=== PATIENT | female | born 1970 | race African-American/Black ===

== ENCOUNTER 2018-02-08 06:33 | Inpatient (IN) ==
[~2018-02-08 06:33] MED LIST: D5 1/2 NS 1000 ML 1,000 ML IV ONE
[2018-02-08 07:04] VITALS: BMI 40.7
[2018-02-08] MEDS ORDERED: D5 1/2 NS 1000 ML 1,000 ML IV SCH (07:14)
[2018-02-08] MEDS ORDERED: ANCEF VIAL 1 GRAM IVP ONE (07:14)
[2018-02-08] MEDS ORDERED: FENTANYL INJ 250 mcg ONE (07:20)
[2018-02-08] MEDS ORDERED: DILAUDID INJ ONE (08:01)
[2018-02-08] MEDS ORDERED: METHYLENE BLUE 1% INJ ONE (08:43)
[2018-02-08] MEDS ORDERED: D5 1/2 NS 1000 ML 1,000 ML IV ONE (09:13)
[2018-02-08] MEDS ORDERED: REGLAN INJ 10 MG VIAL IVP PRN (09:57)
[2018-02-08] MEDS ORDERED: DILAUDID INJ IVP PRN (09:57)
[2018-02-08] MEDS ORDERED: ZOFRAN INJ 4 MG VIAL IVP PRN ×2 (09:57→10:47)
[2018-02-08] MEDS ORDERED: PHENERGAN INJ 25 MG IVP PRN (09:57)
[2018-02-08] MEDS ORDERED: BENADRYL INJ 50 MG VIAL IVP PRN ×2 (09:57→10:47)
[2018-02-08] MEDS ORDERED: MORPHINE SULFATE PCA 30 MG ONE (10:45)
[2018-02-08] MEDS ORDERED: MORPHINE SULFATE PCA 30 MG IVP PRN (10:47)
[2018-02-08] MEDS: TORADOL 30 MG VIAL IVP PRN ×3 (13:05→20:44)
[2018-02-08] MEDS ORDERED: NORMODYNE INJ 20 MG VIAL ONE (13:08)
[2018-02-08] MEDS ORDERED: NS IRRIGATION 1000 ML ONE (14:57)
[2018-02-08] MEDS: D5 1/2 NS 1000 ML 1,000 ML IV SCH ×3 (14:57→20:48)
[2018-02-08] MEDS ORDERED: NEOSTIGMINE INJ ONE (16:00)
[2018-02-08] MEDS ORDERED: TORADOL 30 MG VIAL ONE (16:00)
[2018-02-08] MEDS ORDERED: XYLOCAINE 1 % (PLAIN) ONE (16:00)
[2018-02-08] MEDS ORDERED: VERSED ONE (16:00)
[2018-02-08] MEDS ORDERED: ROBINUL ONE (16:00)
[2018-02-08] MEDS ORDERED: DIPRIVAN VIAL ONE (16:00)
[2018-02-08] MEDS ORDERED: NORCURON INJ 10 MG VIAL ONE (16:00)
[2018-02-08] MEDS ORDERED: ZOFRAN INJ 4 MG VIAL ONE (16:00)
[2018-02-08] MEDS ORDERED: QUELICIN (OR ANECTINE) ONE (16:00)
[2018-02-08] MEDS ORDERED: SUPRANE IN ONE (16:00)
[2018-02-09] MEDS: TORADOL 30 MG VIAL IVP PRN ×3 (01:05→06:11)
[2018-02-09 05:14] LABS: BASOPHILS % (AUTO) 0.2 % (0.2-1.0); EOSINOPHILS # (AUTO) 0.1 x10^3/uL (0.0-0.2); EOSINOPHILS % (AUTO) 2.3 % (0.9-2.9); HEMATOCRIT 27.9 % (36.0-47.0); HEMOGLOBIN 9.5 g/dL (12.0-16.0); LYMPHOCYTES # (AUTO) 1.5 X10^3/uL (1.3-2.9); LYMPHOCYTES % (AUTO) 28.2 % (21.0-51.0); MEAN CORPUSCULAR HEMOGLOBIN 28.1 pg (27.0-34.0); MEAN CORPUSCULAR HGB CONC 33.9 g/dL (33.0-35.0); MEAN CORPUSCULAR VOLUME 82.9 fL (80.0-100.0); MEAN PLATELET VOLUME 7.7 fL (7.4-11.0); MONOCYTES # (AUTO) 0.4 x10^3/uL (0.3-0.8); MONOCYTES % (AUTO) 7.7 % (0.0-13.0); NEUTROPHILS # (AUTO) 3.3 x10^3/uL (2.2-4.8); NEUTROPHILS % (AUTO) 61.6 % (42.0-75.0); PLATELET COUNT 251 X10^3/uL (150.0-450.0); RED BLOOD COUNT 3.37 X10^6/uL (3.5-5.4); RED CELL DISTRIBUTION WIDTH 13.9 % (11.6-16.5); WHITE BLOOD COUNT 5.4 X10^3/uL (3.6-10.0)
[2018-02-09 05:30] LABS: BLOOD UREA NITROGEN 5 mg/dL (7-18); CALCIUM 8.1 mg/dL (8.5-10.1); CARBON DIOXIDE 26.8 mmol/L (21-32); CHLORIDE 105 mmol/L (98-107); COR NA(FOR HYPERGLY) 140 mmol/L (136-145); CREATININE 0.92 mg/dL (0.55-1.02); SODIUM 139 mmol/L (136-145); eGFR NON BLACK RACES > 60 (>60)
[2018-02-09] MEDS ORDERED: POTASSIUM CHL 40 MEQ/NS 0.45% 500 ML IV PRN (05:51)
[2018-02-09] MEDS ORDERED: MICRO K EXTEN CAP 10 MEQ PO PRN (05:51)
[2018-02-09] MEDS ORDERED: POTASSIUM CHL 60 MEQ/NS 0.45% 500 ML IV PRN (05:51)
[2018-02-09] MEDS ORDERED: K-DUR TAB 20 MEQ PO PRN (05:51)
[2018-02-09] MEDS ORDERED: KLOR-CON PO PRN (05:51)
[2018-02-09] MEDS ORDERED: K-RIDER 10 MEQ/NS 100 ML 10 MEQ/100 ML BAG IV PRN (05:51)
[2018-02-09] MEDS ORDERED: POTASSIUM CHLORIDE LIQ 20 MEQ UDC PO PRN (05:51)
[2018-02-09] MEDS: D5 1/2 NS 1000 ML 1,000 ML IV SCH ×2 (06:12)
[2018-02-09] MEDS ORDERED: XANAX PO PRN (07:34)
[2018-02-09] MEDS: PERCOCET TAB 5/325 MG PO PRN ×3 (08:35→20:00)
[2018-02-09] MEDS: COLACE CAP 100 MG PO SCH ×2 (08:37→20:00)
[2018-02-09] MEDS ORDERED: ESTRACE PO SCH (09:00)
[2018-02-09] MEDS ORDERED: ZYLOPRIM PO SCH (09:00)
[2018-02-09] MEDS: BACTROBAN CREAM TOP SCH ×3 (12:58→21:40)
[2018-02-09] MEDS: MOTRIN TAB 800 MG PO PRN (15:53)
[2018-02-09] MEDS: MYLICON TAB 80 MG CHEW PO PRN (20:02)
[2018-02-10] MEDS: PERCOCET TAB 5/325 MG PO PRN ×2 (01:30→05:30)
[2018-02-10] MEDS: MYLICON TAB 80 MG CHEW PO PRN (04:38)
[2018-02-10] MEDS: MOTRIN TAB 800 MG PO PRN (04:38)
[2018-02-10 04:45] VITALS: BP 117/63
[2018-02-10] MEDS: BACTROBAN CREAM TOP SCH (05:30)
== END 2018-02-10 08:20 | disposition home or self-care (01) | DRG 743 ==
LOC: MED/SURG 06:33
PROVIDERS: ADMIT Specialist; ATTEND Specialist
DX: R10.2 Pelvic and perineal pain; D25.2 Subserosal leiomyoma of uterus; N92.5 Other specified irregular menstruation; N94.4 Primary dysmenorrhea
CPT/HCPCS: 36415; 80048; 83735; 85025; 94760; A4216; A4222; J0330; J0690; J1170; J1885; J2250; J2271; J2405; J2704; J2710; J3010; J3490; Q9968; S5010

== ENCOUNTER 2024-05-09 12:02 | Observation (INO) ==
[2024-05-09] MEDS: DILAUDID INJ IVP ONE (13:03)
[2024-05-09] MEDS: VERSED IVP ONE (13:04)
[2024-05-09] MEDS: ZOFRAN INJ 4 MG VIAL IVP ONE (13:06)
--- NOTE | 2024-05-09 13:38 | DR.SOBA ---
HPI Time Seen Time Seen by Provider: 05/09/24 13:38 Primary Care Physician Primary Care Physician: Cheyanne Complaints Chief Complaint:: Pt. c/o SOB x 2 weeks. 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 Surgery Family History History of Family Medical Conditions: Yes Family Medical History: Diabetes Mellitus, Cancer, Coronary Artery Disease and Hypertension Social History Does patient currently use any type of tobacco product: No Have you used tobacco products in the last 12 months: No Type of Tobacco Use: None Does any household member use tobacco: No Alcohol Use: Rarely Do you use any recreational Drugs:: No Lives With: Family Lives Where: Home Travel Risk Coronavirus risk:travel/contact w/high risk person: No Has patient experienced Coronavirus symptoms: No Infectious screening In the last 2 months have you had wt loss of >10#?: NO Have you had fever, night sweats or hemotysis?: No Have you traveled outside the country in the last 6 months?: No Isolation: Standard PE Vital Signs Vitals: Vital Signs Temperature 97.5 F Pulse Rate 75 Pulse Rate 98 Respiratory Rate 20 Respiratory Rate 22 Blood Pressure 109/68 Blood Pressure 161/92 O2 Sat by Pulse Oximetry 100 O2 Sat by Pulse Oximetry 99 ROR Labs Reviewed 05/09/24 13:48 05/09/24 13:48 Laboratory: WBC 3.7 X10^3/uL (3.6-10.0) 05/09/24 13:48 RBC 3.86 X10^6/uL (3.5-5.4) 05/09/24 13:48 Hgb 10.8 g/dL (12.0-16.0) L 05/09/24 13:48 Hct 32.2 % (36.0-47.0) L 05/09/24 13:48 MCV 83.3 fL (80.0-100.0) 05/09/24 13:48 MCH 27.9 pg (27.0-34.0) 05/09/24 13:48 MCHC 33.5 g/dL (33.0-35.0) 05/09/24 13:48 RDW 16.3 % (11.6-16.5) 05/09/24 13:48 Plt Count 302 X10^3/uL (150.0-450.0) 05/09/24 13:48 MPV 7.0 fL (7.4-11.0) L 05/09/24 13:48 Neut % (Auto) 51.6 % (42.0-75.0) 05/09/24 13:48 Lymph % (Auto) 37.6 % (21.0-51.0) 05/09/24 13:48 [place] % (Auto) 8.1 % (0.0-13.0) 05/09/24 13:48 Eos % (Auto) 1.7 % (0.9-2.9) 05/09/24 13:48 Baso % (Auto) 1.0 % (0.2-1.0) 05/09/24 13:48 Neut # (Auto) 1.9 x10^3/uL (2.2-4.8) L 05/09/24 13:48 Lymph # (Auto) 1.4 X10^3/uL (1.3-2.9) 05/09/24 13:48 [place] # (Auto) 0.3 x10^3/uL (0.3-0.8) 05/09/24 13:48 Eos # (Auto) 0.1 x10^3/uL (0.0-0.2) 05/09/24 13:48 Baso # (Auto) 0.0 X10^3/uL (0.0-0.1) 05/09/24 13:48 Absolute Nucleated RBC 0.2 /100WBC 05/09/24 13:48 Sodium 141 mmol/L (136-145) 05/09/24 13:48 Corrected Sodium 141 mmol/L (136-145) 05/09/24 13:48 Potassium 4.2 mmol/L (3.5-5.1) 05/09/24 13:48 Chloride 107 mmol/L (98-107) 05/09/24 13:48 Carbon Dioxide 27.1 mmol/L (21-32) 05/09/24 13:48 BUN 14 mg/dL (7-18) 05/09/24 13:48 Creatinine 1.57 mg/dL (0.55-1.02) H 05/09/24 13:48 Est GFR (MDRD) Af Amer 44 (>60) L 05/09/24 13:48 Est GFR (MDRD) Non-Af 37 (>60) L 05/09/24 13:48 Glucose 118 mg/dL (65-99) H 05/09/24 13:48 Calcium 9.0 mg/dL (8.5-10.1) 05/09/24 13:48 Corrected Calcium 9.6 mg/dL (8.5-10.1) 05/09/24 13:48 Total Bilirubin 0.30 mg/dL (0.2-1.0) 05/09/24 13:48 AST 21 Units/L (15-37) 05/09/24 13:48 ALT 24 Units/L (12-78) 05/09/24 13:48 Alkaline Phosphatase 72 Units/L (46-116) 05/09/24 13:48 Lactate Dehydrogenase Cancelled 05/09/24 13:48 Total Protein 7.4 g/dL (6.4-8.2) 05/09/24 13:48 Albumin 3.2 g/dL (3.4-5.0) L 05/09/24 13:48 Globulin 4.2 g/dL (2.5-4.5) 05/09/24 13:48 Albumin/Globulin Ratio 0.8 Ratio (1.1-2.1) L 05/09/24 13:48 Fluid pH 8.0 05/09/24 13:10 Fluid Total Protein 4.8 05/09/24 13:10 Opioid Opioid Risk Tool Age (Casey box if 16-45): No History of Preadolescent Sexual Abuse: No Total: 0 Total Score Risk Category: Low Risk Copyright: Vini LY predicting aberrant behaviors Discharge Plan Discharge Plan Patient Disposition: HOME, SELF-CARE Condition: Stable Prescriptions: No Action carvedilol 12.5 mg tablet 12.5 mg PO Q12H Qty: 180 0RF folic acid 800 mcg tablet 0.8 mg PO QDAY Qty: 90 3RF cyclobenzaprine 10 mg tablet 10 mg PO TID PRN (Reason: muscle spasm) 10 Days Qty: 30 0RF Linzess 72 mcg capsule 72 mcg PO QAM 90 Days Qty: 90 1RF alprazolam [Xanax] 0.5 mg tablet 0.5 mg PO BID MDD 2 PRN (Reason: anxiety secondary to breast cancer) 30 Days Qty: 60 2RF dextroamphetamine-amphetamine [Adderall] 30 mg tablet 30 mg PO BID MDD 2 tablets per 24 hours 30 Days Qty: 60 0RF Rx Instructions: administer doses at least 4-6 hours apart hydrocodone-acetaminophen 10-325 mg tablet 1 tab PO Q6H MDD 4 tablets per 24 hours PRN (Reason: Pain) 30 Days Qty: 120 0RF Rx Instructions: patient only takes when needed amitriptyline 25 mg tablet 25 mg PO QHS Qty: 90 3RF metformin 500 mg tablet extended release 24 hr 500 mg PO QDAY Qty: 90 3RF tramadol 50 mg tablet 50 mg PO BID PRN (Reason: pain) cholecalciferol (vitamin D3) 125 mcg (5,000 unit) tablet 125 mcg PO DAILY ondansetron 8 mg tablet,disintegrating 8 mg PO TID PRN (Reason: nausea) letrozole 2.5 mg tablet 2.5 mg PO QDAY Verzenio 50 mg tablet 50 mg PO DAILY Health Concerns: Post Hospitalization: new medications and changes needed to prevent readmission or further decline. Pt educated and given instructions on all concerns. Plan of Treatment: Continue with present treatment and follow up plan. Pt is to keep follow up appointment as instructed and take medications as ordered. Orders to Discharge Patient Discharge Orders: Transfer (Routine); Ordered 05/09/24 Ordered By: JOHN LEWIS Follow ups/Referrals Follow ups/Referrals: Marvin Edward MD [Primary Care Provider] - 3 days Instructions Stand Alone Forms: Find Help Web Site, Post Hospital Follow Up Care
[2024-05-09 13:59] LABS: EOSINOPHILS # (AUTO) 0.1 x10^3/uL (0.0-0.2); EOSINOPHILS % (AUTO) 1.7 % (0.9-2.9); HEMATOCRIT 32.2 % (36.0-47.0); HEMOGLOBIN 10.8 g/dL (12.0-16.0); LYMPHOCYTES # (AUTO) 1.4 X10^3/uL (1.3-2.9); LYMPHOCYTES % (AUTO) 37.6 % (21.0-51.0); MEAN CORPUSCULAR HEMOGLOBIN 27.9 pg (27.0-34.0); MEAN CORPUSCULAR HGB CONC 33.5 g/dL (33.0-35.0); MEAN CORPUSCULAR VOLUME 83.3 fL (80.0-100.0); MONOCYTES # (AUTO) 0.3 x10^3/uL (0.3-0.8); MONOCYTES % (AUTO) 8.1 % (0.0-13.0); NEUTROPHILS # (AUTO) 1.9 x10^3/uL (2.2-4.8); NEUTROPHILS % (AUTO) 51.6 % (42.0-75.0); PLATELET COUNT 302 X10^3/uL (150.0-450.0); RED BLOOD COUNT 3.86 X10^6/uL (3.5-5.4); RED CELL DISTRIBUTION WIDTH 16.3 % (11.6-16.5); WHITE BLOOD COUNT 3.7 X10^3/uL (3.6-10.0)
[2024-05-09 14:11] LABS: ALBUMIN 3.2 g/dL (3.4-5.0); CARBON DIOXIDE 27.1 mmol/L (21-32); COR CA(FOR HYPOALB) 9.6 mg/dL (8.5-10.1); CREATININE 1.57 mg/dL (0.55-1.02); POTASSIUM 4.2 mmol/L (3.5-5.1); TOTAL PROTEIN 7.4 g/dL (6.4-8.2)
[2024-05-09] MEDS ORDERED: ZOFRAN INJ 4 MG VIAL IVP PRN (16:00)
--- NOTE | 2024-05-09 16:10 | RAD ---
EXAM: CHEST, 1 VIEW HISTORY: SOB; COMPARISON: CTA chest May 06, 2024 TECHNIQUE: Portable chest radiograph FINDINGS: The heart size and mediastinal contours are normal. There is mild elevation of the right diaphragm. Recently described large right-sided pleural effusion is much improved. There is marginal residual blunting of the right costophrenic sulcus indicating a small residual effusion with subjacent atelect asis. No consolidating infiltrates are identified. There is no radiographic evidence of pneumothora x or free air below the diaphragm. Multilevel bridging osteophytes of the spine are typical of diffuse idiopathic skeletal hyperostosis . IMPRESSION: Recently described large right-sided pleural effusion is much improved. Marginal blunting of the right costophrenic sulcus may indicate a small residual pleural effusion wit h subjacent atelectasis. Mild elevation of the right diaphragm. THIS IS AN ELECTRONICALLY VERIFIED FINAL REPORT 05/09/2024 4:07 PM - Electronically signed by Tony Harris MD
[2024-05-09 18:04] VITALS: BMI 42.7
[2024-05-09] MEDS: PEPCID TAB 40 MG PO SCH (21:51)
[2024-05-09] MEDS: NORCO 5/325 MG TAB PO PRN (21:52)
[2024-05-10 04:56] LABS: BASOPHILS % (AUTO) 0.9 % (0.2-1.0); EOSINOPHILS # (AUTO) 0.1 x10^3/uL (0.0-0.2); HEMATOCRIT 28.6 % (36.0-47.0); HEMOGLOBIN 9.6 g/dL (12.0-16.0); LYMPHOCYTES # (AUTO) 1.7 X10^3/uL (1.3-2.9); LYMPHOCYTES % (AUTO) 40.4 % (21.0-51.0); MEAN CORPUSCULAR HEMOGLOBIN 28.1 pg (27.0-34.0); MEAN CORPUSCULAR HGB CONC 33.5 g/dL (33.0-35.0); MEAN CORPUSCULAR VOLUME 83.9 fL (80.0-100.0); MEAN PLATELET VOLUME 6.9 fL (7.4-11.0); MONOCYTES # (AUTO) 0.3 x10^3/uL (0.3-0.8); MONOCYTES % (AUTO) 7.8 % (0.0-13.0); NEUTROPHILS # (AUTO) 2.1 x10^3/uL (2.2-4.8); NEUTROPHILS % (AUTO) 48.9 % (42.0-75.0); PLATELET COUNT 268 X10^3/uL (150.0-450.0); RED BLOOD COUNT 3.41 X10^6/uL (3.5-5.4); WHITE BLOOD COUNT 4.2 X10^3/uL (3.6-10.0)
[2024-05-10 05:10] LABS: ALBUMIN 2.9 g/dL (3.4-5.0); CALCIUM 8.5 mg/dL (8.5-10.1); CARBON DIOXIDE 29.5 mmol/L (21-32); CHOL/HDL RATIO 3.6 (0.0-5.0); COR CA(FOR HYPOALB) 9.4 mg/dL (8.5-10.1); CREATININE 1.61 mg/dL (0.55-1.02); TOTAL PROTEIN 6.6 g/dL (6.4-8.2)
[2024-05-10 08:26] VITALS: O2SAT 97
--- NOTE | 2024-05-10 08:33 | RAD ---
EXAM:Portable chestHISTORY:Pleural effusionCOMPARISON:05/09/2024 chest x-ray, 05/06/2024 CTA chestFINDINGS:Heart size is normal. Saniya are normal. Lungs appear free of acute infiltrates. Haziness in the right lung base is likely due to residual right pleural effusion. There is apparent elevation of the right hemidiaphragm but with a shift of the apex of the hemidiaphragm laterally suggestive of the presence of sub pulmonic pleural fluid. Pleural effusion is likely increasing somewhat when compared with the prior examination. Right lateral decubitus chest film may be of further diagnostic value. No left pleural effusion identified. Bony thorax is unremarkable.IMPRESSION:No acute infiltratesSuspect increase in the patient's sub pulmonic right pleural effusion when compared with the prior examination. Right lateral decubitus chest film may be of further diagnostic value.THIS IS AN ELECTRONICALLY VERIFIED FINAL REPORT05/10/2024 8:30 AM - Electronically signed by Alec Lees MD
[2024-05-10] MEDS: PEPCID TAB 40 MG PO SCH (09:17)
[2024-05-10] MEDS: ZOFRAN INJ 4 MG VIAL ONE (10:46)
[2024-05-10] MEDS: GLUCOPHAGE XR 24-HR PO SCH (11:25)
[2024-05-10] MEDS: COREG TAB 12.5 MG PO SCH (11:25)
[2024-05-10] MEDS: NORCO 10/325 TAB PO PRN (11:26)
[2024-05-10] MEDS ORDERED: READI-CAT 2 ONE (13:21)
[2024-05-10] MEDS ORDERED: OMNIPAQUE 350 mg/mL 100 mL BTL 100 ML ONE (15:31)
[2024-05-10 16:19] VITALS: BP 117/57; PULSE 69; RESP 17; TEMP 98.5
--- NOTE | 2024-05-10 16:58 | CT ---
EXAM: CT ABDOMEN AND PELVIS WITH INTRAVENOUS CONTRASTHISTORY: Rule out metastatic disease to the liver.TECHNIQUE: Spiral axial CT images are obtained through the abdomen and pelvis without the administration of oral contrast and with the administration of intravenous contrast. Additional coronal and sagittal reformatted images are reconstructed.COMPARISON: None available.FINDINGS:GASTROINTESTINAL TRACT: There is no evidence for bowel herniation, bowel obstruction, colitis or diverticulitis. A normal-appearing appendix is seen.GENITOURINARY SYSTEM: There are multiple innumerable cysts scattered throughout the kidney (largest in the left upper pole kidney measuring approximately 2.6 cm) in keeping with multicystic kidney disease. There is an approximately 1 cm rounded hypodense mass (-92 HU) in the posterior medial right upper pole kidney consistent with an angiomyolipoma (axial image 34; coronal image 38). There is no ureteral calculus or stigmata of obstructive uropathy. There is circumferential thickening (up to 1.1 cm) of the urinary bladder wall; DDx includes muscle wall hypertrophy and cystitis in the appropriate clinical setting; infiltrating neoplastic disease (e.g. lymphoma), though unlikely, not excluded.CT ABDOMEN: No evidence for hepatic metastatic disease is seen at this time. The liver, spleen, pancreas, adrenal glands, gallbladder, aorta, and inferior vena cava are within normal limits for a CT scan. There is no intra-abdominal or retroperitoneal lymphadenopathy, free fluid, or free air seen. No abdominal herniation is noted.CT PELVIS: Status post hysterectomy. No pelvic sidewall or inguinal lymphadenopathy is seen. No inguinal herniation is noted. No free fluid or free air is seen.BONES AND JOINTS: The visualized bony structures are within normal limits.LUNG BASES: There is up to 1.6 cm lobular thickening of the visualized anterior pleura within the middle and inferior right hemithorax, with suggestion of associated chest wall invasion and costochondral cartilage erosion; DDx includes neoplastic disease (e.g. mesothelioma) with chest wall invasion and cartilage erosion. Axial image 1-16. There is a moderate to large dependent right pleural effusion with thickened nodular enhancing pleural rind; DDx includes empyema and malignant effusion with pleural metastasis in the appropriate clinical setting. There is an enlarged enhancing right retrocrural lymph node conglomerate (approximately 3.8 cm CC by 1.9 cm AP by 2.2 cm transverse) in keeping with malignant lymphadenopathy. Axial image 15; coronal image 43.IMPRESSION:1. Up to 1.6 cm lobular thickening of the visualized anterior pleura within the middle and inferior right hemithorax, with suggestion of associated chest wall invasion and costochondral cartilage erosion; DDx includes neoplastic disease (e.g. mesothelioma) with chest wall invasion and cartilage erosion. Axial image 1-16.2. Moderate to large dependent right pleural effusion with thickened nodular enhancing pleural rind; DDx includes empyema and malignant effusion with pleural metastasis in the appropriate clinical setting.3. Enlarged enhancing right retrocrural lymph node conglomerate (approximately 3.8 cm CC by 1.9 cm AP by 2.2 cm transverse) in keeping with malignant lymphadenopathy. Axial image 15; coronal image 43.4. No evidence for hepatic metastatic disease seen.5. No evidence for pyelonephritis, renal stone disease or obstructive uropathy.6. Multiple innumerable cysts scattered throughout the kidney (largest in the left upper pole kidney measuring approximately 2.6 cm) in keeping with multicystic kidney disease.7. Approximately 1 cm rounded hypodense mass (-92 HU) in the posterior medial right upper pole kidney consistent with an angiomyolipoma (axial image 34; coronal image 38).8. Circumferential thickening (up to 1.1 cm) of the urinary bladder wall; DDx includes muscle wall hypertrophy and cystitis in the appropriate clinical setting; infiltrating neoplastic disease (e.g. lymphoma), though unlikely, not excluded.9. No evidence for acute appendicitis, bowel herniation/obstruction, colitis or diverticulitis seen.10. No free fluid or free air seen.THIS IS AN ELECTRONICALLY VERIFIED FINAL REPORT05/10/2024 4:55 PM - Electronically signed by Esme Acevedo MD
--- NOTE | 2024-05-10 17:35 | DR.SSS ---
SHORT STAY SUMMARY Admission Date Date of Admission: 05/09/24 Discharge Date Discharge Date: 05/10/24 Admission Diagnoses Admission Diagnoses: Dyspnea Discharge Diagnoses Discharge Diagnoses: Large right pleural effusion, metastatic breast cancer, anemia of chronic disease. Chief Complaint Chief Complaint: Dyspnea History of Present Illness History of Present Illness: Patient sent to the ER by oncology after CT of the chest showed large right-sided pleural effusion. Following with them routinely due to her history of left-sided breast cancer. CT was ordered due to 3 weeks of worsening dyspnea on exertion that progressed to dyspnea at rest. ER consulted surgery and they performed a thoracentesis with good relief of symptoms. She was to be admitted overnight for repeat chest x-ray in the morning. Past Medical History Past Medical History: Dyslipidemia and Hypertension Past Surgical History Surgical History: Hysterectomy Allergies Allergies Allergy/AdvReac Type Severity Reaction Status Date / Time tizanidine [From Zanaflex] Allergy Verified 05/09/24 15:12 Medications Home Medications: tizanidine [From Zanaflex] Allergy (Verified 05/09/24 15:12) Family History Family Medical History: Diabetes Mellitus, Cancer and Coronary Artery Disease Social History Does patient currently use any type of tobacco product: No Have you used tobacco products in the last 12 months: No Type of Tobacco Use: None Does any household member use tobacco: No Alcohol Use: Rarely Drug Use: None Physical Exam Vital Signs: Last Vital Signs Temp 97.2 F L 05/10/24 08:00 Pulse 88 05/10/24 08:00 Resp 19 05/10/24 08:00 BP 132/63 05/10/24 08:00 Pulse Ox 97 05/10/24 08:00 O2 Del Method Nasal Cannula 05/10/24 08:00 O2 Flow Rate 2 05/10/24 08:00 Labs Labs: Laboratory Last Values WBC 4.2 X10^3/uL (3.6-10.0) 05/10/24 04:35 RBC 3.41 X10^6/uL (3.5-5.4) L 05/10/24 04:35 Hgb 9.6 g/dL (12.0-16.0) L 05/10/24 04:35 Hct 28.6 % (36.0-47.0) L 05/10/24 04:35 MCV 83.9 fL (80.0-100.0) 05/10/24 04:35 MCH 28.1 pg (27.0-34.0) 05/10/24 04:35 MCHC 33.5 g/dL (33.0-35.0) 05/10/24 04:35 RDW 16.0 % (11.6-16.5) 05/10/24 04:35 Plt Count 268 X10^3/uL (150.0-450.0) 05/10/24 04:35 MPV 6.9 fL (7.4-11.0) L 05/10/24 04:35 Neut % (Auto) 48.9 % (42.0-75.0) 05/10/24 04:35 Lymph % (Auto) 40.4 % (21.0-51.0) 05/10/24 04:35 [place] % (Auto) 7.8 % (0.0-13.0) 05/10/24 04:35 Eos % (Auto) 2.0 % (0.9-2.9) 05/10/24 04:35 Baso % (Auto) 0.9 % (0.2-1.0) 05/10/24 04:35 Neut # (Auto) 2.1 x10^3/uL (2.2-4.8) L 05/10/24 04:35 Lymph # (Auto) 1.7 X10^3/uL (1.3-2.9) 05/10/24 04:35 [place] # (Auto) 0.3 x10^3/uL (0.3-0.8) 05/10/24 04:35 Eos # (Auto) 0.1 x10^3/uL (0.0-0.2) 05/10/24 04:35 Baso # (Auto) 0.0 X10^3/uL (0.0-0.1) 05/10/24 04:35 Absolute Nucleated RBC 0.1 /100WBC 05/10/24 04:35 Sodium 140 mmol/L (136-145) 05/10/24 04:35 Corrected Sodium 142 mmol/L (136-145) 05/10/24 04:35 Potassium 4.0 mmol/L (3.5-5.1) 05/10/24 04:35 Chloride 105 mmol/L (98-107) 05/10/24 04:35 Carbon Dioxide 29.5 mmol/L (21-32) 05/10/24 04:35 BUN 15 mg/dL (7-18) 05/10/24 04:35 Creatinine 1.61 mg/dL (0.55-1.02) H 05/10/24 04:35 Est GFR (MDRD) Af Amer 43 (>60) L 05/10/24 04:35 Est GFR (MDRD) Non-Af 36 (>60) L 05/10/24 04:35 Glucose 176 mg/dL (65-99) H 05/10/24 04:35 Calcium 8.5 mg/dL (8.5-10.1) 05/10/24 04:35 Corrected Calcium 9.4 mg/dL (8.5-10.1) 05/10/24 04:35 Total Bilirubin 0.20 mg/dL (0.2-1.0) 05/10/24 04:35 AST 19 Units/L (15-37) 05/10/24 04:35 ALT 22 Units/L (12-78) 05/10/24 04:35 Alkaline Phosphatase 71 Units/L (46-116) 05/10/24 04:35 Lactate Dehydrogenase Cancelled 05/09/24 13:48 Creatine Kinase 106 Units/L (26-192) 05/10/24 04:35 Troponin I High Sens 7.7 ng/L (4.0-60.0) 05/10/24 04:35 Total Protein 6.6 g/dL (6.4-8.2) 05/10/24 04:35 Albumin 2.9 g/dL (3.4-5.0) L 05/10/24 04:35 Globulin 3.7 g/dL (2.5-4.5) 05/10/24 04:35 Albumin/Globulin Ratio 0.8 Ratio (1.1-2.1) L 05/10/24 04:35 Triglycerides 189 mg/dL (0-150) H 05/10/24 04:35 Cholesterol 167 mg/dL (0-200) 05/10/24 04:35 LDL Cholesterol, Calc 83 mg/dL (0-100) 05/10/24 04:35 HDL Cholesterol 46 mg/dL (40-60) 05/10/24 04:35 Cholesterol/HDL Ratio 3.6 (0.0-5.0) 05/10/24 04:35 Fluid pH 8.0 05/09/24 13:10 Fluid Total Protein 4.8 05/09/24 13:10 Hospital Course Hospital Course: Patient was admitted for overnight observation after right-sided thoracentesis. Repeat chest x-ray this morning is much improved. Echo was ordered given her history of effusion with breast cancer. Report was still pending at the time of her discharge but there was concern about a possible hyperechoic liver lesion. CT with contrast of the abdomen/pelvis was obtained. That showed diffuse metastatic disease with pleural erosions. Her oncologist was contacted and will see her in follow-up along with her PCP. Patient was discharged home in improved condition from a respiratory standpoint. No medication changes were made. ROS: 12 point ROS negative except as noted in HPI. PE: Well-developed, well-nourished, obese female in no acute distress. Resting calmly in bed. Hearing grossly intact, EOMI, head NCAT, trachea midline. Respirations are even, unlabored, with strong speech but diminished breath sounds at the right base. Heart regular rate and rhythm. Belly is soft and no ntender with bowel sounds present but protuberant. Mood and affect are appropriate. Moves all 4 extremities equally well. Discharge Medications Discharge Medications: Prescriptions: Discharge Plan Discharge Plan Patient Disposition: 01 HOME, SELF-CARE Condition: Stable Health Concerns: Post Hospitalization: new medications and changes needed to prevent readmission or further decline. Pt educated and given instructions on all concerns. Care Plan Goals: Problem: Pain/Alteration in Comfort Goal: Improve/ Resolve Pain; Achieve Pain Tolerance Instructions: Take pain medications as prescribed. Contact your primary care provider if your pain is unrelieved or worsens. Follow up with primary care provider as directed. Plan of Treatment: Continue with present treatment and follow up plan. Pt is to keep follow up appointment as instructed and take medications as ordered. Prescription drug monitoring program results: PDMP reviewed and no concerns identified Prescriptions: Continued carvedilol 12.5 mg tablet 12.5 mg PO Q12H Qty: 180 0RF folic acid 800 mcg tablet 0.8 mg PO QDAY Qty: 90 3RF cyclobenzaprine 10 mg tablet 10 mg PO TID PRN (Reason: muscle spasm) 10 Days Qty: 30 0RF Linzess 72 mcg capsule 72 mcg PO QAM 90 Days Qty: 90 1RF alprazolam [Xanax] 0.5 mg tablet 0.5 mg PO BID MDD 2 PRN (Reason: anxiety secondary to breast cancer) 30 Days Qty: 60 2RF dextroamphetamine-amphetamine [Adderall] 30 mg tablet 30 mg PO BID MDD 2 tablets per 24 hours 30 Days Qty: 60 0RF Rx Instructions: administer doses at least 4-6 hours apart hydrocodone-acetaminophen 10-325 mg tablet 1 tab PO Q6H MDD 4 tablets per 24 hours PRN (Reason: Pain) 30 Days Qty: 120 0RF Rx Instructions: patient only takes when needed amitriptyline 25 mg tablet 25 mg PO QHS Qty: 90 3RF metformin 500 mg tablet extended release 24 hr 500 mg PO QDAY Qty: 90 3RF tramadol 50 mg tablet 50 mg PO BID PRN (Reason: pain) cholecalciferol (vitamin D3) 125 mcg (5,000 unit) tablet 125 mcg PO DAILY ondansetron 8 mg tablet,disintegrating 8 mg PO TID PRN (Reason: nausea) letrozole 2.5 mg tablet 2.5 mg PO QDAY Verzenio 50 mg tablet 50 mg PO DAILY Orders to Discharge Patient Discharge Orders: Discharge (Routine); Ordered 05/10/24 Ordered By: Marvin Edward Follow ups/Referrals Follow ups/Referrals: NOLAN MONREAL [STAFF PHYSICIAN] - 05/17/24 9:40 am Instructions Instructions: Shortness of Breath, Adult, [id number] Stand Alone Forms: Excuse From Work or School, Find Help Web Site, Post Hospital Follow Up Care
== END 2024-05-10 16:50 | disposition home or self-care (01) ==
LOC: ER 12:02 → MED/SURG 12:02
PROVIDERS: ADMIT Family Medicine; ATTEND Family Medicine

== ENCOUNTER 2024-05-19 17:44 | Observation (INO) ==
[2024-05-19] MEDS ORDERED: NORCO 5/325 MG TAB PO PRN (17:49)
[2024-05-19] MEDS: NS 1,000 ML IV 1,000 ML IV SCH (18:02)
[2024-05-19] MEDS: NS 1,000 ML IV 1,000 ML ONE (18:22)
--- NOTE | 2024-05-20 06:06 | RAD ---
EXAM: CHEST, 1 VIEW HISTORY: SOB, S/P THORACENTESIS; DM, HTN, GERD, STAGE 4 MET BREAST CANCER SX: HYST COMPARISON: 05/19/2024 FINDINGS: The cardiomediastinal silhouette is stable. Scattered bilateral pleural-parenchymal opacities, [id number]. No pneumothorax. No acute osseous abnormality. IMPRESSION: Airspace opacities concerning for edema or pneumonia. No obvious pneumothorax. THIS IS AN ELECTRONICALLY VERIFIED FINAL REPORT 05/20/2024 6:02 AM - Electronically signed by Alec Lees MD
[2024-05-20 08:05] VITALS: BP 128/71; PULSE 70; RESP 20; TEMP 97.8; O2SAT 100
== END 2024-05-20 10:35 | disposition home or self-care (01) ==
LOC: MED/SURG
PROVIDERS: ADMIT Surgery; ATTEND Surgery
DX: E11.9 Type 2 diabetes mellitus without complications; K21.9 Gastro-esophageal reflux disease without esophagitis; C78.01 Secondary malignant neoplasm of right lung; J91.0 Malignant pleural effusion; R06.02 Shortness of breath; I25.10 Atherosclerotic heart disease of native coronary artery without angina pectoris; I10 Essential (primary) hypertension; C50.411 Malignant neoplasm of upper-outer quadrant of right female breast